=== PATIENT | female | born 1980 | race Caucasian/White ===

== ENCOUNTER → 2022-05-01 | Outpatient (CLI) | payer OTHER, SELFPAY ==
[2022-05-01 14:30] LABS: Absolute Neutrophil Count 8.9 X10^3/uL (2.0-7.7); Basophil# 0.02 X10^3/uL; Basophil% 0.2 % (0-1); Eosinophil# 0.06 X10^3/uL; Eosinophils% 0.5 % (0-5); Hematocrit 37.5 % (37-47); Hemoglobin 12.6 g/dL (12.0-15.0); Lymphocyte % 15.7 % (19-41); Mean Corp Hgb Conc 33.6 g/dL (32-36); Mean Corpuscular Hgb 28.4 pg (27.0-32.0); Mean Corpuscular Volume 84.7 fL (81-99); Mean Platelet Vol. 10.6 fl (6.2-12.0); Monocyte# 0.59 X10^3/uL; Monocyte% 5.2 % (0-10); NRBC Flagged by Analyzer 0 % (0-5); Neutrophil # 8.94 X10^3/uL (2.7-7.7); Neutrophil % 78.1 % (47-70); Platelet Count 290 K/mm3 (150-450); RBC Distribution Width CV 13.3 % (11.6-14.6); RBC Distribution Width SD 41.4 fl (35.1-43.9); Red Blood Count 4.43 M/mm3 (4.2-5.4); White Blood Count 11.5 K/mm3 (4.4-11.0)
[2022-05-01 14:57] LABS: ALB/GLOB Ratio 0.9 RATIO (0.9-2.4); AST(SGOT) 10 U/L (15-37); Alanine Aminotransfer ALT/SGPT 18 U/L (13-56); Albumin, Serum 3.3 g/dL (3.2-5.0); Alkaline Phosphatase 63 U/L (45-117); Anion Gap 7 (5-15); BUN 12 mg/dL (7-18); BUN/Creat Ratio 14.6 RATIO (10-20); Calcium,Total 8.9 mg/dL (8.5-10.1); Chloride 107 mmol/L (98-107); Creatinine, Serum 0.82 mg/dL (0.55-1.02); EST Glomerular Filtration Rate 81 mL/min (>60); Est Glom Filt Rate - Afr Amer 98 mL/min (>60); Globulin 3.8 g/dL (2.2-4.2); Glucose 162 mg/dL (74-106); Glucose Challenge Gest 1H 50g 162 mg/dL (70-140); Potassium 3.7 mmol/L (3.5-5.1); Protein, Total 7.1 g/dL (6.4-8.2); Sodium Level 136 mmol/L (136-145)
[2022-05-01 16:05] LABS: HIV - WCH Non-Reactive (Nonreactive); Hepatitis B Surface Antigen Non-Reactive (Nonreactive); Hepatitis C Antibody Non-Reactive (Nonreactive); Rubella IgG Reactive (Nonreactive); Syphilis Antibodies Non-reactive
[2022-05-04 00:06] LABS: Chlamydia By Nucleic Acid AMP Negative (Negative)
[2022-05-04 12:37] LABS: Gonococcus By Nucleic Acid AMP Negative (Negative)
[2022-05-10 13:34] LABS: HPV APTIMA, High Risk Negative (Negative)
== END | disposition home or self-care (01) ==
LOC: PAVLAB 14:11
PROVIDERS: Referring Provider Obstetrics & Gynecology; Visit Provider Obstetrics & Gynecology
DX: O09.90 Supervision of high risk pregnancy, unspecified, unspecified trimester (principal)
CPT/HCPCS: 36415; 80053; 82950; 85025; 86703; 86762; 86780; 86803; 86850; 86900; 86901; 87086; 87340; 87491; 87591; 87624; 88175; G0145

== ENCOUNTER → 2022-05-07 | Outpatient (CLI) | payer OTHER, SELFPAY ==
[2022-05-07 10:47] LABS: Glucose GTT-Gestation. Fasting 98 mg/dL (<105)
[2022-05-07 12:47] LABS: Glucose GTT-Gestational 1 Hr 123 mg/dL (<190)
[2022-05-07 13:41] LABS: Glucose GTT-Gestational 2 Hr 111 mg/dL (<165)
[2022-05-07 13:50] LABS: Glucose GTT-Gestational 3 Hr 72 L (<145)
== END | disposition home or self-care (01) ==
LOC: LAB 09:59
PROVIDERS: PCP Physician Assistant; Referring Provider Nurse Practitioner Women's Health; Visit Provider Nurse Practitioner Women's Health
DX: Z13.1 Encounter for screening for diabetes mellitus (principal)
CPT/HCPCS: 36415; 82951; 82952

== ENCOUNTER → 2022-07-23 | Outpatient (CLI) | payer OTHER, SELFPAY ==
[2022-07-23 19:25] LABS: Protein:Creat Ratio 85 mg/g CRE (0-200)
== END | disposition home or self-care (01) ==
PROVIDERS: Advanced Practice Midwife; PCP Physician Assistant; Visit Provider Obstetrics & Gynecology
DX: O16.9 Unspecified maternal hypertension, unspecified trimester (principal)
CPT/HCPCS: 82570; 84156

== ENCOUNTER → 2022-09-10 | Outpatient (CLI) | payer OTHER, SELFPAY ==
[2022-09-10 12:24] LABS: Absolute Lymphocyte Count 1.57 X10^3/uL (0.83-4.51); Absolute Neutrophil Count 7.6 X10^3/uL (2.0-7.7); Basophil# 0.01 X10^3/uL; Basophil% 0.1 % (0-1); Eosinophil# 0.05 X10^3/uL; Eosinophils% 0.5 % (0-5); Hemoglobin 11.6 g/dL (12.0-15.0); Lymphocyte # 1.57 X10^3/ul (0.83-4.51); Mean Corp Hgb Conc 32.2 g/dL (32-36); Mean Corpuscular Hgb 28.7 pg (27.0-32.0); Mean Corpuscular Volume 89.1 fL (81-99); Mean Platelet Vol. 10.6 fl (6.2-12.0); Monocyte# 0.52 X10^3/uL; Monocyte% 5.3 % (0-10); NRBC Flagged by Analyzer 0 % (0-5); Neutrophil % 77.4 % (47-70); Platelet Count 268 K/mm3 (150-450); RBC Distribution Width CV 13.2 % (11.6-14.6); RBC Distribution Width SD 42.9 fl (35.1-43.9); Red Blood Count 4.04 M/mm3 (4.2-5.4); White Blood Count 9.8 K/mm3 (4.4-11.0)
[2022-09-10 12:54] LABS: Glucose Challenge Gest 1H 50g 124 mg/dL (70-140)
[2022-09-10 13:16] LABS: HIV - WCH Non-Reactive (Nonreactive); Syphilis Antibodies Non-reactive
== END | disposition home or self-care (01) ==
LOC: LAB 11:46
PROVIDERS: PCP Physician Assistant; Referring Provider Obstetrics & Gynecology; Visit Provider Obstetrics & Gynecology
DX: O16.9 Unspecified maternal hypertension, unspecified trimester (principal); Z3A.00 Weeks of gestation of pregnancy not specified
CPT/HCPCS: 36415; 82950; 85025; 86703; 86780

== ENCOUNTER → 2022-10-15 | Outpatient (CLI) | payer OTHER, SELFPAY ==
--- NOTE | 2022-10-15 12:11 | US_ITS ---
INDICATION: Weekly GRACE- Hypertension -- 33 Weeks EXAMINATION: Ultrasound US Biophysical Profile W/O Nonst TECHNIQUE: Transabdominal pelvic ultrasound was performed. COMPARISON: No relevant prior comparison study available LMP: Unknown. Beta-hCG: Unknown. Provided EGA: None. FINDINGS: HEART MOTION is 143 bpm. AMNIOTIC FLUID INDEX (GRACE): 11.36 BIOPHYSICAL PROFILE (BPP): 10/01 -- Breathin/2. -- Movement: 2/2. -- Tone: 2/2. --GRACE: 2/2. PRESENTATION: Posterior. PLACENTA: Anterior. There is no placenta previa or abruption. US/Biophysical Prof W/O Non Stres IMPRESSION: Single live intrauterine with a biophysical profile of 10/01. Electronically Signed: Rimma Robles MD at 8:15 EDT ,
== END | disposition home or self-care (01) ==
LOC: OPUS 12:10
PROVIDERS: PCP Physician Assistant; Referring Provider Nurse Practitioner Women's Health; Visit Provider Nurse Practitioner Women's Health
DX: O16.3 Unspecified maternal hypertension, third trimester (principal); Z3A.33 33 weeks gestation of pregnancy
CPT/HCPCS: 76819

== ENCOUNTER → 2022-10-29 | Outpatient (CLI) | payer OTHER, SELFPAY ==
--- NOTE | 2022-10-29 12:30 | US_ITS ---
INDICATION: Weekly GRACE- Hypertension -- 35 Weeks EXAMINATION: Ultrasound US Biophysical Profile W/O Nonst TECHNIQUE: Transabdominal pelvic ultrasound was performed. COMPARISON: 10/15/2022 LMP: 02/25/2022 Beta-hCG: Unknown. Provided EGA: 35 weeks 1 day FINDINGS: INTRAUTERINE GESTATION(s): Single. HEART MOTION is 147 bpm. AMNIOTIC FLUID INDEX (GRACE): 18.1 cm BIOPHYSICAL PROFILE (BPP): 10/01 -- Breathin/2. -- Movement: 2/2. -- Tone: 2/2. --GRACE: 2/2. PRESENTATION: Cephalic PLACENTA: Posterior. There is no placenta previa or abruption. CERVIX: The cervix is not visualized. US/Biophysical Prof W/O Non Stres IMPRESSION: Single live intrauterine . Biophysical profile score 10/01. Electronically Signed: Emmanuel Randle MD at 0:56 EDT ,
== END | disposition home or self-care (01) ==
LOC: OPUS 12:28
PROVIDERS: PCP Physician Assistant; Referring Provider Nurse Practitioner Women's Health; Visit Provider Nurse Practitioner Women's Health
DX: O16.9 Unspecified maternal hypertension, unspecified trimester (principal); Z3A.35 35 weeks gestation of pregnancy
CPT/HCPCS: 76819

== ENCOUNTER → 2022-11-05 | Outpatient (CLI) | payer OTHER, SELFPAY ==
--- NOTE | 2022-11-05 12:25 | US_ITS ---
STUDY: OBSTETRICAL ULTRASOUND - BIOPHYSICAL PROFILE REASON FOR EXAM: Female, 42 years old maternal hypertension LMP: 02/25/2022 PRIOR ULTRASOUND: 10/29/2022 TECHNIQUE: Transabdominal TECHNICAL QUALITY: Adequate. FINDINGS: There is a single intrauterine fetus. The fetus is in a cephalic presentation. There is demonstrated cardiac activity with a heart rate of 142 bpm. There is a borderline normal amniotic fluid volume. The largest amniotic fluid pocket measures 7.4 cm. The amniotic fluid index (GRACE) is 25.2 cm. Both have increased since the previous study. The placenta is posterior and fundal, not low lying There are Grade 0 placental changes. Age by LMP: 36 weeks, 1 days. TAISHA by LMP: 12/02/2022. BIOPHYSICAL PROFILE: Breathing Movements (FBM): 2 Gross Body Movements (GBM): 2 Tone (FT): 2 Amniotic Fluid Volume (AFV): 2 TOTAL SCORE: US/Biophysical Prof W/O Non Stres IMPRESSION: Normal biophysical profile of 10/01. Electronically Signed: John Weinberg MD at 17:08 EDT ,
== END | disposition home or self-care (01) ==
LOC: OPUS 12:24
PROVIDERS: PCP Physician Assistant; Referring Provider Nurse Practitioner Women's Health; Visit Provider Nurse Practitioner Women's Health
DX: O16.3 Unspecified maternal hypertension, third trimester (principal); Z3A.34 34 weeks gestation of pregnancy
CPT/HCPCS: 76819

== ENCOUNTER → 2022-11-07 | Outpatient (CLI) | payer OTHER, SELFPAY | END | disposition home or self-care (01) | PROVIDERS: PCP Physician Assistant; Referring Provider Obstetrics & Gynecology; Visit Provider Obstetrics & Gynecology | DX: O09.90 Supervision of high risk pregnancy, unspecified, unspecified trimester (principal); Z3A.00 Weeks of gestation of pregnancy not specified | CPT/HCPCS: 87081 ==

== ENCOUNTER 2022-11-10 17:50 | Outpatient (CLI) | payer OTHER, SELFPAY ==
[2022-11-10] VITALS (7 sets, daily range): BP systolic 140–152; BP diastolic 82–90; PULSE 69–89; TEMP 37.1; O2SAT 97; BMI 39.4
--- NOTE | 2022-11-10 18:44 | OB.TRI.PN ---
Progress Notes Date of Service: 11/10/22 Progress Note: Patient presents for triage evaluation secondary to decreased movement FHT: 150 Moderate variability reactive no decelerations category I tracing [place]: irregular Contractions Assessment and plan: decreased movement Reactive NST, reassuring maternal and status patient discharged to home to follow-up as scheduled. See problem list details for additional plan information. Charges/Coding Procedures Urinary/Genital 52xxx-59xxx: 54226-72 non-stress test Interp
[2022-11-10 19:45] LABS: Hematocrit 36.1 % (37-47); Hemoglobin 11.6 g/dL (12.0-15.0); Mean Corp Hgb Conc 32.1 g/dL (32-36); Mean Corpuscular Hgb 28.5 pg (27.0-32.0); Mean Corpuscular Volume 88.7 fL (81-99); Mean Platelet Vol. 10.9 fl (6.2-12.0); Platelet Count 291 K/mm3 (150-450); RBC Distribution Width CV 13.4 % (11.6-14.6); RBC Distribution Width SD 43.5 fl (35.1-43.9); Red Blood Count 4.07 M/mm3 (4.2-5.4); White Blood Count 10.8 K/mm3 (4.4-11.0)
[2022-11-10 19:55] LABS: Protein, Urine (Random) 21.6 mg/dL (<11.9); Protein:Creat Ratio 160 mg/g CRE (0-200)
[2022-11-10 20:05] LABS: AST(SGOT) 19 U/L (15-37); Alanine Aminotransfer ALT/SGPT 37 U/L (13-56); EST Glomerular Filtration Rate 84 mL/min (>60); Est Glom Filt Rate - Afr Amer 101 mL/min (>60); Estimated Creatinine Clearance 85.76 ml/min; Uric Acid 2.5 mg/dL (2.6-6.0)
== END 2022-11-10 20:30 | disposition home or self-care (01) ==
LOC: WPOUT 18:00 → WP 18:00
PROVIDERS: PCP Physician Assistant; Visit Provider Obstetrics & Gynecology
DX: O36.8190 Decreased fetal movements, unspecified trimester, not applicable or unspecified (principal); Z3A.00 Weeks of gestation of pregnancy not specified
CPT/HCPCS: 36415; 59025; 59050; 82565; 82570; 84156; 84450; 84460; 84550; 85027

== ENCOUNTER 2022-11-11 14:19 | Outpatient (CLI) | payer OTHER, SELFPAY ==
--- NOTE | 2022-11-11 14:21 | US_ITS ---
INDICATION: Weekly GRACE- Hypertension -- 37 Weeks EXAMINATION: Ultrasound US Biophysical Profile W/O Nonst TECHNIQUE: Transabdominal pelvic ultrasound was performed. COMPARISON: 11/05/2022 LMP: 02/25/2022 Beta-hCG: Unknown. Provided EGA: 37 weeks 0 days FINDINGS: INTRAUTERINE GESTATION(s): Single. HEART MOTION is 141 bpm. AMNIOTIC FLUID INDEX (GRACE): 22.6 cm BIOPHYSICAL PROFILE (BPP): 6/8 -- Breathin/2. -- Movement: 2/2. -- Tone: 2/2. --GRACE: 2/2. PRESENTATION: Cephalic PLACENTA: Posterior. There is no placenta previa or abruption. CERVIX: The cervix is not visualized. US/Biophysical Prof W/O Non Stres IMPRESSION: Single live intrauterine . Biophysical profile score 6/8. Electronically Signed: Emmanuel Randle MD at 16:51 EDT ,
[2022-11-11 15:34] VITALS: BP 142/93; PULSE 85
[2022-11-11 16:13] VITALS: BP 138/86; PULSE 83
[2022-11-11 16:27] LABS: Protein:Creat Ratio 253 mg/g CRE (0-200)
[2022-11-11 16:28] VITALS: BP 138/81; PULSE 84
--- NOTE | 2022-11-11 16:32 | OB.TRI.PN ---
Progress Notes Date of Service: 11/11/22 Progress Note: Patient presents for triage evaluation secondary to 6/8 bpp borderline bp FHT: 150 Moderate variability reactive no decelerations category I tracing [place]: irregular Contractions Assessment and plan: 6/8 bpp borderline bbp nl urine protein Reactive NST, reassuring maternal and status patient discharged to home to follow-up as scheduled. See problem list details for additional plan information. Laboratory Studies: Laboratory Tests 11/11/22 Range/Units 16:05 U Random Total Protein 57.0 H (<11.9) mg/dL Urine Creatinine 225.00 (NO RANGE EST.) mg/dL Protein/Creatinin Ratio 253 H (0-200) mg/g CRE Charges/Coding Procedures Urinary/Genital 52xxx-59xxx: 53240-34 non-stress test Interp
[2022-11-11 16:43] VITALS: BP 135/70; PULSE 88
[2022-11-11 17:30] VITALS: BMI 39.2
== END 2022-11-11 17:45 | disposition home or self-care (01) ==
LOC: OPUS 15:23 → WP 15:24
PROVIDERS: Obstetrics & Gynecology; PCP Physician Assistant; Referring Provider Nurse Practitioner Women's Health; Visit Provider Nurse Practitioner Women's Health
DX: O16.3 Unspecified maternal hypertension, third trimester (principal); Z3A.37 37 weeks gestation of pregnancy
CPT/HCPCS: 59050; 76819; 82570; 84156

== ENCOUNTER → 2022-11-14 | Outpatient (CLI) | payer OTHER, SELFPAY ==
--- NOTE | 2022-11-14 13:12 | US_ITS ---
EXAM: US BIOPHYSICAL PROFILE WITHOUT NON-STRESS TESTING CLINICAL INDICATION: well being TECHNIQUE: Real-time ultrasound of the maternal pelvis for biophysical profile evaluation with image documentation. COMPARISON: No relevant prior studies available. FINDINGS: BREATHING MOVEMENTS: Present. Score 2/2. GROSS BODY MOVEMENTS: Present. Score 2/2. TONE: Present. Score 2/2. QUALITATIVE AMNIOTIC FLUID VOLUME: GRACE 18.1 cm. HEART RATE: cardiac rate 143 bpm. PRESENTATION: Single fetus in cephalic presentation. PLACENTA: Posterior placenta with grade 1 maturity change. CERVIX: Cervix is not imaged. US/Biophysical Prof W/O Non Stres IMPRESSION: No acute findings. Normal biophysical profile with score of 8/8. Electronically Signed: Herbert Buenrostro MD at 16:54 EDT ,
[2022-11-14 13:28] LABS: Protein, Urine (Random) 27.8 mg/dL (<11.9); Protein:Creat Ratio 232 mg/g CRE (0-200)
== END | disposition home or self-care (01) ==
LOC: US 13:11
PROVIDERS: Obstetrics & Gynecology; PCP Physician Assistant; Referring Provider Obstetrics & Gynecology; Visit Provider Obstetrics & Gynecology
DX: O16.9 Unspecified maternal hypertension, unspecified trimester (principal); Z3A.00 Weeks of gestation of pregnancy not specified
CPT/HCPCS: 76819; 82570; 84156

== ENCOUNTER 2022-11-17 14:10 | Outpatient (CLI) | payer OTHER, SELFPAY ==
[2022-11-17 14:45] VITALS: BMI 39.5
[2022-11-17 14:54] VITALS: BP 144/93; PULSE 90
[2022-11-17 15:04] VITALS: BP 152/77; PULSE 72
[2022-11-17 15:14] VITALS: BP 134/79; PULSE 70
[2022-11-17 15:24] VITALS: BP 136/79; PULSE 71
[2022-11-17 15:24] LABS: Protein, Urine (Random) 16.9 mg/dL (<11.9); Protein:Creat Ratio 218 mg/g CRE (0-200)
[2022-11-17 15:25] LABS: Hematocrit 36.6 % (37-47); Hemoglobin 12.2 g/dL (12.0-15.0); Mean Corp Hgb Conc 33.3 g/dL (32-36); Mean Corpuscular Hgb 29.1 pg (27.0-32.0); Mean Corpuscular Volume 87.4 fL (81-99); Mean Platelet Vol. 11.3 fl (6.2-12.0); Platelet Count 286 K/mm3 (150-450); RBC Distribution Width CV 13.6 % (11.6-14.6); RBC Distribution Width SD 42.8 fl (35.1-43.9); Red Blood Count 4.19 M/mm3 (4.2-5.4); White Blood Count 11.4 K/mm3 (4.4-11.0)
[2022-11-17 15:31] LABS: AST(SGOT) 26 U/L (15-37); Alanine Aminotransfer ALT/SGPT 44 U/L (13-56); Creatinine, Serum 0.62 mg/dL (0.55-1.02); EST Glomerular Filtration Rate 111 mL/min (>60); Est Glom Filt Rate - Afr Amer 135 mL/min (>60); Estimated Creatinine Clearance 110.66 ml/min; Uric Acid 2.5 mg/dL (2.6-6.0)
[2022-11-17 15:34] VITALS: BP 131/79; PULSE 75
[2022-11-17 15:46] VITALS: BP 143/76; PULSE 72
--- NOTE | 2022-11-18 08:27 | OB.TRI.HP_ITS ---
HPI - General General Date of Admission: 11/17/22 Date of Service: 11/17/22 Chief Complaint: elevated bp at home HPI Narrative PATSY MENDEZ, is a 42 F who presents at 37.6 with elevated BP at home however does not feel cuff is reliable. presents without headache, RUQ or visual changes. did have concerns with decreased movement today. no contractions, lof, or vb. Maternal Data Information TAISHA Calculator Estimated Delivery Date Method Current WG Current Estimate 12/02/22 LMP (Certain) 38w 0d Other Estimates 12/02/22 Ultrasound #1 38w 0d PFSH PFS Medical History Abnormal glucose affecting Hypertension Home Medications blood pressure monitor (Blood Pressure Kit) #1 ea 05/01/22 [Rx Last Taken Unknown] aspirin 81 mg tablet,delayed release (Adult Low Dose Aspirin) 81 mg PO DAILY 05/28/22 [History Last Taken Unknown] labetalol 100 mg tablet 100 mg PO BID 90 days #180 tabs 10/08/22 [Rx Last Taken 11/10/22] vits no.130-ferrous fum 27 mg iron-folic acid 800 mcg tablet ( Vitamin) tab PO DAILY 11/10/22 [History Last Taken Unknown] Allergy/AdvReac Type Severity Reaction Status Date / Time No Known Allergies Allergy Verified 11/14/22 11:23 Family History Grandmother Breast cancer, Onset Age: 78 Grandfather Hypertension Surgical History Hx of section Hx of hernia repair Hx of tonsillectomy Social History household members: spouse and children housing: house number of children: 4 current occupational status: employed 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[employer] current occupational exposures/hazards: No pets and animals: Yes pets and animals: dog(s) and guinea pig(s) history of recent travel: No sexually active: Yes Smoking Status: Never smoker alcohol intake: current alcohol intake frequency: holidays/special occasions only diet: low salt well-balanced diet: about half the time caffeine: No seatbelt use: always do you feel safe at home: Yes additional social history: [employer] History 6 Elective abortions Hx Para 3 Spontaneous abortions 2 Hx # Term Pregnancies 2 Ectopic pregnancies Hx # Pregnancies 1 Multiple births 1 # of living children 4 Past Pregnancies Del. Date Name GA/Weeks Outcome Route Bth Weight Infant Gen Labor [facility] FOB Unknown spontaneous Unknown spontaneous 08/06/11 Selvin Ashford 34 live - Fema le spinal [facility] 09/18/13 Samuel 39 live - full term Male epidur al [facility] 07/27/20 Janeth 39 live - full term Female none [facility] Visit Details Expected Delivery Route/Plan patient counseled regarding risks/benefits of trial of labor versus repeat . ACOG/uptodate education given to patient. % likelihood of success per calculator TOLAC consent form signed: [] Labor Preferences- CB/BF classes: no labor support person: Danielito labor intervention preferences: minimal intervention pain management options preferred: none cut cord/dad catch: yes : yes PP control planned: discussed discussed possible routes of delivery and associated risks: [] special requests: [] Plans Covid status: discussed Flu vaccine: discussed Tdap vaccine: [] Rhogam: NA LARC form signed: yes Problem list reviewed and updated with the most current plan of care details and appropriate orders placed. Relevant counseling for the gestational age provided. Continue routine care and follow up unless otherwise noted in visit notes/problem list details OB Flowsheet Initial Weight: 234 lb Date -?-?-?-?-?-?-?-?-?-?-?-?- EGA Weight BP Urine Prot -?-?-?-?-?-?-?-?-?-?-?-?- Glucose FHR FuHt Pres Dilation -?-?-?-?-?-?-?-?-?-?-?-?- Effaced St Visit Note 05/01/22 -?-?-?-?-?-?-?-?-?-?-?-?- 9w 2d 234 lb (+0 oz) 125/77 -?-?-?-?-?-?-?-?-?-?-?-?- 185 -?-?-?-?-?-?-?-?-?-?-?-?- JV- single live iUP measuring 9 weeks 2 days, consistent with LMP. declines NIPT. 05/28/22 -?-?-?-?-?-?-?-?-?-?-?-?- 13w 1d 238 lb 8 oz (+4 lb 8 oz) 137/81 -?-?-?-?-?-?-?-?-?-?-?-?- 160 -?-?-?-?-?-?-?-?-?-?-?-?- Sm- no vb lof cr amping extensive counseling regarding genetic options 06/25/22 -?-?-?-?-?-?-?-?-?-?-?-?- 17w 1d 246 lb 2 oz (+12 lb 2 oz) 123/73 Negative -?-?-?-?-?-?-?-?-?-?-?-?- Negative 150 -?-?-?-?-?-?-?-?-?-?-?-?- JV- + fm on beds wilmer scan. they decided against NIPT. anatomy scan scheduled for next 07/11. 07/23/22 -?-?-?-?-?-?-?-?-?-?-?-?- 21w 1d 248 lb 2 oz (+14 lb 2 oz) 133/81 Trace -?-?-?-?-?-?-?-?-?-?-?-?- Negative 155 21 -?-?-?-?-?-?-?-?-?-?-?-?- KW- +fm. no cram ping. declines echo. discussed growth us and nsts at 32 weeks. pt tearful regarding additional testing. 08/22/22 -?-?-?-?-?-?-?-?-?-?-?-?- 25w 3d 246 lb 6 oz (+12 lb 6 oz) 124/64 Trace -?-?-?-?-?-?-?-?-?-?-?-?- Negative 140 25 -?-?-?-?-?-?-?-?-?-?-?-?- SM- had ec ho 615 and very small vsd present, will obtain report. no vb cramping 09/10/22 -?-?-?-?-?-?-?-?-?-?-?-?- 28w 1d 245 lb (+11 lb) 124/82 Negative -?-?-?-?-?-?-?-?-?-?-?-?- Negative 151 28 -?-?-?-?-?-?-?-?-?-?-?-?- MH-No Vb, LOF. G ood FM. Plans [facility] delivery. 28 wk labs today, larc. Declines tdap today. Enc to schedule twice weekly testing at 32 wk and growth US Q4w at 32 wk. 09/25/22 -?-?-?-?-?-?-?-?-?-?-?-?- 30w 2d 244 lb 2 oz (+10 lb 2 oz) 119/67 Negative -?-?-?-?-?-?-?-?-?-?-?-?- Negative 145 32 -?-?-?-?-?-?-?-?-?-?-?-?- JV- discussed wi th peds about possible transport after delivery. Per [facility] the chances of term delivery transport with mild vsd and mild renal dilation is very low. we also discussed 38 week delivery necessity unless [facility] gives permission to deliver later. She desires . 10/11/22 -?-?-?-?-?-?-?-?-?-?-?-?- 32w 4d 242 lb 2 oz (+8 lb 2 oz) 124/82 Negative -?-?-?-?-?-?-?-?-?-?-?-?- Negative 150 -?-?-?-?-?-?-?-?-?-?-?-?- JV- nst reactive today. no other complaints. 10/18/22 -?-?-?-?-?-?-?-?-?-?-?-?- 33w 4d 244 lb 2 oz (+10 lb 2 oz) 116/73 Negative -?-?-?-?-?-?-?--?-?-?-?-?- Negative 140 -?-?-?-?-?-?-?-?-?-?-?-?- SM- no vb lof ns t today 11/01/22 -?-?-?-?-?-?-?-?-?-?-?-?- 35w 4d 248 lb 6 oz (+14 lb 6 oz) 126/78 Negative -?-?-?-?-?-?-?-?-?-?-?-?- Negative 140 -?-?-?-?-?-?-?-?-?-?-?-?- LC- no vb/lof/ct x. good fm. reactive nst. gbs next visit. 11/07/22 -?-?-?-?-?-?-?-?-?-?-?-?- 36w 3d 245 lb 8 oz (+11 lb 8 oz) 127/84 Negative -?-?-?-?-?-?-?-?-?-?-?-?- Negative 140 -?-?-?-?-?-?-?-?-?-?-?-?- SM- reviewed US finidings, gbs collected, continue meds and reviewed precautions, no vb lof good fm no reuglar ctx 11/14/22 -?-?-?-?-?-?-?-?-?-?-?-?- 37w 3d 247 lb 8 oz (+13 lb 8 oz) 125/82 Trace -?-?-?-?-?-?-?-?-?-?-?-?- Negative 150 38 -?-?-?-?-?-?-?-?-?-?-?-?- JV- no lof, vagi nal bleeding, or dec fm. NST was not completely reactive but bpp is 8/8. pro:cr ratio was 212 down from 250. plan IOL on Friday am. NST FHR Rate Baby A Baseline: 125 Variability:: Moderate Accelerations:: 15 x 15 Decelerations:: None NST Reactive:: Yes FHR Category:: Category I Uterine Activity:: irregular Assessment & Plan (1) Hypertension affecting : QUALIFIERS: Trimester: third trimester Qualified Code(s): O16.3 - Unspecified maternal hypertension, third trimester COMMENT: P/C - nl on 07/23). chronic-Labetalol 100mg BID and h/o pre-e. start baby asa. plan growth US q 4weeks, twice weekly testing 32 weeks on(schedule once a week NST and BPP). delivery by PLAN: negative PEC labs, stable and consistent BP 130-140s/80s. no severe range bp has IOL scheduled for friday. (2) Decreased movement: COMMENT: reassuring NST with movement in WP. PLAN: Plan Patient presents for triage evaluation secondary for concerns for elevated bp at home. baseline bp found on WP monitors and reassurance provided. FHT: Moderate variability reactive no decelerations category I tracing [place]: irregular Contractions Assessment and plan: Reactive NST, reassuring maternal and status patient discharged to home to follow-up prn and for iol on friday. See problem list details for additional plan information. Charges/Coding Procedures Urinary/Genital 52xxx-59xxx: 52514-36 non-stress test Interp
== END 2022-11-17 15:53 | disposition home or self-care (01) ==
LOC: WPOUT 14:34 → WP 14:36
PROVIDERS: PCP Physician Assistant; Referring Provider Registered Nurse; Visit Provider Registered Nurse
DX: O36.8130 Decreased fetal movements, third trimester, not applicable or unspecified (principal); O16.3 Unspecified maternal hypertension, third trimester; Z3A.37 37 weeks gestation of pregnancy
CPT/HCPCS: 59025; 59050; 82565; 82570; 84156; 84450; 84460; 84550; 85027; 99221; G0378

== ENCOUNTER 2022-11-20 07:54 | Inpatient (IN) | payer OTHER, SELFPAY ==
[2022-11-20] VITALS (20 sets, daily range): BP systolic 136–155; BP diastolic 64–93; PULSE 68–97; TEMP 36.9–37.8; O2SAT 98–99; BMI 40.2
[2022-11-20] MEDS: Lactated Ringers 1,000 ML 50 ML IV (09:40)
[2022-11-20 10:06] LABS: Absolute Lymphocyte Count 1.84 X10^3/uL (0.83-4.51); Absolute Neutrophil Count 7.5 X10^3/uL (2.0-7.7); Basophil# 0.02 X10^3/uL; Basophil% 0.2 % (0-1); Eosinophil# 0.04 X10^3/uL; Eosinophils% 0.4 % (0-5); Hemoglobin 11.6 g/dL (12.0-15.0); Lymphocyte # 1.84 X10^3/ul (0.83-4.51); Lymphocyte % 17.9 % (19-41); Mean Corp Hgb Conc 32.2 g/dL (32-36); Mean Corpuscular Hgb 28.4 pg (27.0-32.0); Mean Platelet Vol. 11.4 fl (6.2-12.0); Monocyte# 0.79 X10^3/uL; Monocyte% 7.7 % (0-10); NRBC Flagged by Analyzer 0 % (0-5); Neutrophil % 73.1 % (47-70); Platelet Count 280 K/mm3 (150-450); RBC Distribution Width CV 13.7 % (11.6-14.6); RBC Distribution Width SD 43.9 fl (35.1-43.9); Red Blood Count 4.09 M/mm3 (4.2-5.4); White Blood Count 10.3 K/mm3 (4.4-11.0)
[2022-11-20] MEDS: Oxytocin 15 Units/NS 250ml 15 UNITS/250 ML IV.SOLN 2 UNITS IV (10:07)
[2022-11-20] MEDS: Labetalol 100 MG Tablet PO ×2 (10:16→20:07)
[2022-11-20 10:45] LABS: Syphilis Antibodies Non-reactive
--- NOTE | 2022-11-20 14:06 | HP.PCM.OB_ITS ---
HPI - General General Date of Admission: 11/20/22 HPI Narrative PATSY MENDEZ, is a 42 g/o @ 38 weeks 2 days who presents to L&D for IOL due to chronic htn on medication. She has a history of prior section due to twin gestation and requests TOLAC. her baby has been found to have a minor VSD an mild pyelectasis. Her amniotic fluid level was in the polyhydramnios range Maternal Data Information TAISHA Calculator Estimated Delivery Date Method Current WG Current Estimate 12/02/22 LMP (Certain) 38w 2d Other Estimates 12/02/22 Ultrasound #1 38w 2d [facility] Medical History (Updated 11/20/22 @ 10:58 by Olinda Hernandez) Abnormal glucose affecting Hypertension Polyhydramnios affecting Varicose veins of both lower extremities Home Medications blood pressure monitor (Blood Pressure Kit) #1 ea 05/01/22 [Rx Last Taken Unknown] aspirin 81 mg tablet,delayed release (Adult Low Dose Aspirin) 81 mg PO DAILY 05/28/22 [History Last Taken 11/19/22 21:02 81 mg] labetalol 100 mg tablet 100 mg PO BID hypertension 90 days #180 tabs 10/08/22 [Rx Last Taken 11/19/22 21:00 100 mg] vits no.130-ferrous fum 27 mg iron-folic acid 800 mcg tablet ( Vitamin) 1 tab PO DAILY 11/10/22 [History Last Taken 11/19/22 08:03 1 TAB] Allergy/AdvReac Type Severity Reaction Status Date / Time No Known Allergies Allergy Verified 11/20/22 10:01 Family History Grandmother Breast cancer, Onset Age: 78 Grandfather Hypertension Surgical History Hx of section Hx of hernia repair Hx of tonsillectomy Social History household members: spouse and children housing: house number of children: 4 current occupational status: employed 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[employer] current occupational exposures/hazards: No pets and animals: Yes pets and animals: dog(s) and guinea pig(s) history of recent travel: No sexually active: Yes Smoking Status: Never smoker alcohol intake: current alcohol intake frequency: holidays/special occasions only diet: low salt well-balanced diet: about half the time caffeine: No seatbelt use: always do you feel safe at home: Yes additional social history: Criss and jamarcus History 6 Elective abortions Hx Para 4 Spontaneous abortions 2 Hx # Term Pregnancies 2 Ectopic pregnancies Hx # Pregnancies 1 Multiple births 1 # of living children 4 Past Pregnancies Del. Date Name GA/Weeks Outcome Route Bth Weight [facility] Unknown spontaneous Unknown spontaneous 08/06/11 Selvin Ashford 34 live - Fema le spinal [facility] 09/18/13 Samuel 39 live - full term Male epidur [facility] 07/27/20 Janeth 39 live - full term Female none [facility] Visit Details Expected Delivery Route/Plan patient counseled regarding risks/benefits of trial of labor versus repeat . ACOG/uptodate education given to patient. % likelihood of success per calculator TOLAC consent form signed: [] Labor Preferences- CB/BF classes: no labor support person: Danielito labor intervention preferences: minimal intervention pain management options preferred: none cut cord/dad catch: yes : yes PP control planned: discussed discussed possible routes of delivery and associated risks: [] special requests: [] Plans Covid status: discussed Flu vaccine: discussed Tdap vaccine: [] Rhogam: NA LARC form signed: yes Problem list reviewed and updated with the most current plan of care details and appropriate orders placed. Relevant counseling for the gestational age provided. Continue routine care and follow up unless otherwise noted in visit notes/problem list details OB Flowsheet Initial Weight: 234 lb Date -?-?-?-?-?-?-?-?-?-?-?-?- EGA Weight BP Urine Prot -?-?-?-?-?-?-?-?-?-?-?-?- Glucose FHR FuHt Pres Dilation -?-?-?-?-?-?-?-?-?-?-?-?- Effaced St Visit Note 05/01/22 -?-?-?-?-?-?-?-?-?-?-?-?- 9w 2d 234 lb (+0 oz) 125/77 -?-?-?-?-?-?-?-?-?-?-?-?- 185 -?-?-?-?-?-?-?-?-?-?-?-?- JV- single live iUP measuring 9 weeks 2 days, consistent with LMP. declines NIPT. 05/28/22 -?-?-?-?-?-?-?-?-?-?-?-?- 13w 1d 238 lb 8 oz (+4 lb 8 oz) 137/81 -?-?-?-?-?-?-?-?-?-?-?-?- 160 -?-?-?-?-?-?-?-?-?-?-?-?- Sm- no vb lof cr amping extensive counseling regarding genetic options 06/25/22 -?-?-?-?-?-?-?-?-?-?-?-?- 17w 1d 246 lb 2 oz (+12 lb 2 oz) 123/73 Negative -?-?-?-?-?-?-?-?-?-?-?--?- Negative 150 -?-?-?-?-?-?-?-?-?-?-?-?- JV- + fm on beds wilmer scan. they decided against NIPT. anatomy scan scheduled for next 07/11. 07/23/22 -?-?-?-?-?-?-?-?-?-?-?-?- 21w 1d 248 lb 2 oz (+14 lb 2 oz) 133/81 Trace -?-?-?-?-?-?-?-?-?-?-?-?- Negative 155 21 -?-?-?-?--?-?-?-?-?-?-?-?- KW- +fm. no cram ping. declines echo. discussed growth us and nsts at 32 weeks. pt tearful regarding additional testing. 08/22/22 -?-?-?-?-?-?-?-?-?-?-?-?- 25w 3d 246 lb 6 oz (+12 lb 6 oz) 124/64 Trace -?-?-?-?-?-?-?-?-?-?-?-?- Negative 140 25 -?-?-?-?-?-?-?-?-?-?-?-?- SM- had ec ho 15 and very small vsd present, will obtain report. no vb cramping 09/10/22 -?-?-?-?-?-?-?-?-?-?-?-?- 28w 1d 245 lb (+11 lb) 124/82 Negative -?-?-?-?-?-?-?-?-?-?-?-?- Negative 151 28 -?-?-?-?-?-?-?-?-?-?-?-?- MH-No Vb, LOF. G ood FM. Plans [facility] delivery. 28 wk labs today, larc. Declines tdap today. Enc to schedule twice weekly testing at 32 wk and growth US Q4w at 32 wk. 09/25/22 -?-?-?-?-?-?-?-?-?-?-?-?- 30w 2d 244 lb 2 oz (+10 lb 2 oz) 119/67 Negative -?-?-?-?-?-?-?-?-?-?-?-?- Negative 145 32 -?-?-?-?-?-?-?-?-?-?-?-?- JV- discussed wi th peds about possible transport after delivery. Per [facility] the chances of term delivery transport with mild vsd and mild renal dilation is very low. we also discussed 38 week delivery necessity unless [facility] gives permission to deliver later. She desires . 10/11/22 -?-?-?-?-?-?-?-?-?-?-?-?- 32w 4d 242 lb 2 oz (+8 lb 2 oz) 124/82 Negative -?-?-?-?-?--?-?-?-?-?-?-?- Negative 150 -?-?-?-?-?-?-?-?-?-?-?-?- JV- nst reactive today. no other complaints. 10/18/22 -?-?-?-?-?-?-?-?-?-?-?-?- 33w 4d 244 lb 2 oz (+10 lb 2 oz) 116/73 Negative -?-?-?-?-?-?-?-?-?-?-?-?- Negative 140 -?-?-?-?-?-?-?-?-?-?-?-?- SM- no vb lof ns t today 11/01/22 -?-?-?-?-?-?-?-?-?-?-?-?- 35w 4d 248 lb 6 oz (+14 lb 6 oz) 126/78 Negative -?-?-?-?-?-?-?-?-?-?-?-?- Negative 140 -?-?-?-?-?-?-?-?-?-?-?-?- LC- no vb/lof/ct x. good fm. reactive nst. gbs next visit. 11/07/22 -?-?-?-?-?-?-?-?-?-?-?-?- 36w 3d 245 lb 8 oz (+11 lb 8 oz) 127/84 Negative -?-?-?-?-?-?-?-?-?-?-?-?- Negative 140 -?-?-?-?-?-?-?-?-?-?-?-?- SM- reviewed US finidings, gbs collected, continue meds and reviewed precautions, no vb lof good fm no reuglar ctx 11/14/22 -?-?-?-?-?-?-?-?-?-?-?-?- 37w 3d 247 lb 8 oz (+13 lb 8 oz) 125/82 Trace -?-?-?-?-?-?-?-?-?-?-?-?- Negative 150 38 -?-?-?-?-?-?-?-?-?-?-?-?- JV- no lof, vagi nal bleeding, or dec fm. NST was not completely reactive but bpp is 8. pro:cr ratio was 212 down from 250. plan IOL on Friday am. ROS Constitutional Constitutional: Denies change in weight, fatigue, fever(s), headache(s), poor appetite or weakness Eyes Eyes: Denies blurry vision, change in vision, seeing flashes or spots in vision ENT HEENT: Denies dizziness, headache(s), loss taste/smell or sore throat Cardiovascular Cardiovascular: Denies chest pain, dizziness, dyspnea, irregular heart rhythm, leg edema, palpitations, rapid heart rate or vomiting Respiratory/Chest Respiratory/Chest: Denies chest tightness, cough, dyspnea or breast pain Gastrointestinal Gastrointestinal: Denies abdominal pain, anorexia, constipation, cramping, diarrhea, hemorrhoids, vomiting or weight changes Genitourinary Genitourinary: Denies dysuria, flank pain, genital lesions, genital pain, urinary frequency or urinary urgency Musculoskeletal Musculoskeletal: Denies back pain, difficulty walking, joint pain, limited range of motion, muscle cramps or numbness Integumentary Integumentary: Denies lesions or unusual bruising Neurologic Neurologic: Denies abnormal movements, abnormal speech, dizziness, numbness, seizure-like activity or syncope Psychiatric Psychiatric: Denies anxiety, behavioral changes, change in appetite, change in libido, cognitive impairment, confusion, depression, difficulty concentrating, hallucinations or suicidal thoughts Endocrine Endocrinology: Denies excessive sweating, polydipsia or polyuria Hematologic/Lymphatic Hematologic/Lymphatic: Denies easy bleeding, easy bruising or lymphadenopathy Allergic/Immunologic Allergic/Immunologic: Denies itchy eyes, lip swelling, seasonal rhinorrhea, rhinitis, throat swelling, tongue swelling, eczemia, wheezing or asthma Vital Signs Vital Signs Vital Signs: 11/20/22 09:23 11/20/22 09:23 11/20/22 09:22 Temperature Temperature Source Pulse Rate 84 Blood Pressure 145/83 H BP Systolic 145 BP Diastolic 83 Pulse Ox 98 11/20/22 11:45 11/20/22 11:45 11/20/22 12:54 Temperature Temperature Source Pulse Rate 71 Blood Pressure 136/87 H 153/83 H BP Systolic 136 153 BP Diastolic 87 83 Pulse Ox 11/20/22 12:54 11/20/22 13:09 11/20/22 13:09 Temperature 98.6 F Temperature Source Temporal Pulse Rate 71 Blood Pressure BP Systolic BP Diastolic Pulse Ox 11/20/22 13:15 11/20/22 13:15 Temperature Temperature Source Pulse Rate 74 Blood Pressure 142/71 H BP Systolic 142 BP Diastolic 71 Pulse Ox Weight Weight: 249 lb 9.012 oz Body Mass Index (BMI) 40.2 Physical Exam Const alert, oriented x3, no apparent distress and healthy appearing General Appearance: cooperative; Negative for anxious HEENT normocephalic Face and Sinus: normal facial exam Eyes EOMs intact bilaterally and no scleral icterus General Eye: normal appearance of both eyes Neck full ROM and supple Lymph Lymphatic: no lymphadenopathy noted Chest Chest: abnormal inspection of the chest Resp normal respiratory effort Effort and Inspection: able to speak in complete sentences Cardio regular rate GI soft to palpation and non-tender Inspection: gravid Palpation: soft; Negative for tender external exam normal Amniotic Fluid: ROM+plus Back/Spine no CVA tenderness Extremity normal to inspection, full ROM and no clubbing, cyanosis or edema General Extremity: Negative for calf tenderness or edema Skin Lesions: no lesions Rashes: no rashes Psych mental status grossly normal Labs Labs Labs: Blood Type O POSITIVE Antibody Screen NEGATIVE Hct 36.0 % (37-47) L Hgb 11.6 g/dL (12.0-15.0) L Syphilis Total Ab Non-reactive Rubella IgG Antibody Reactive (Nonreactive) Hep Bs Antigen Non-Reactive (Nonreactive) Chlamydia DNA (CESAR) Negative (Negative) Neisseria gonorrhoeae DNA (CESAR) Negative (Negative) HIV 1&2 Antibody Non-Reactive (Nonreactive) Glucose 1 Hr 50 gm 124 mg/dL (70-140) Assessment & Plan (1) Polyhydramnios: COMMENT: 25 cm (2) pyelectasis: COMMENT: 13mm unilateral patient declined consultation (3) Ventricular septal defect (VSD) of fetus affecting management of : COMMENT: small VSD, fu after delivery, discussed with peds and cleared for [facility] delivery. testing weekly after 32 weeks (bpp's) monthly growth scans with MFM. (4) History of cholestasis during : COMMENT: baseline labs ordered (5) Obesity affecting : QUALIFIERS: Trimester: third trimester Obesity type affecting : unspecified obesity Qualified Code(s): O99.213 - Obesity complicating , third trimester COMMENT: encouraged healthy weight gain. (6) History of delivery affecting : COMMENT: twins, 2 vbacs after, plan (7) Hypertension affecting : QUALIFIERS: Trimester: third trimester Qualified Code(s): O16.3 - Unspecified maternal hypertension, third trimester COMMENT: P/C - nl on 07/23). chronic-Labetalol 100mg BID and h/o pre-e. start baby asa. plan growth US q 4weeks, twice weekly testing 32 weeks on(schedule once a week NST and BPP). delivery by 38 (8) Advanced maternal age (AMA), 40 years or greater: COMMENT: genetic counseling options declined, increased testing per [place] protocol (9) : QUALIFIERS: Weeks of gestation: 37 weeks Qualified Code(s): Z3A.37 - 37 weeks gestation of COMMENT: NIPT Declines. anatomy reviewed. gbs neg (10) Supervision of high risk , antepartum: COMMENT: PRR TAISHA 12/02/22 PC: Selvin Ashford Wade, Tess Spouse: Danielito (11) Abnormal glucose affecting : COMMENT: nl 3 hr GTT PLAN: Plan Patient presents IOL, plan management for with pitocin/AROM. Pain management: undecided GBS negative Management of any complications: start labetalol po now (home med) cotinuous monitoring and AROM after adequate contraction pattern is seen. I have reviewed the [facility] and made any clinically relevant updates.
[2022-11-20] MEDS: LACTATED RINGERS 500 ML 999 ML IV (16:25)
--- NOTE | 2022-11-20 17:57 | OP.PCM_ITS ---
Assessment & Plan (1) Polyhydramnios: COMMENT: 25 cm (2) pyelectasis: COMMENT: 13mm unilateral patient declined consultation (3) Ventricular septal defect (VSD) of fetus affecting management of : COMMENT: small VSD, fu after delivery, discussed with peds and cleared for [facility] delivery. testing weekly after 32 weeks (bpp's) monthly growth scans with MFM. (4) History of cholestasis during : COMMENT: baseline labs ordered (5) Obesity affecting : QUALIFIERS: Trimester: third trimester Obesity type affecting : unspecified obesity Qualified Code(s): O99.213 - Obesity complicating , third trimester COMMENT: encouraged healthy weight gain. (6) History of delivery affecting : COMMENT: twins, 2 vbacs after, plan (7) Hypertension affecting : QUALIFIERS: Trimester: third trimester Qualified Code(s): O16.3 - Unspecified maternal hypertension, third trimester COMMENT: P/C - nl on 07/23). chronic-Labetalol 100mg BID and h/o pre-e. start baby asa. plan growth US q 4weeks, twice weekly testing 32 weeks on(schedule once a week NST and BPP). delivery by 38 (8) Advanced maternal age (AMA), 40 years or greater: COMMENT: genetic counseling options declined, increased testing per [place] protocol (9) : QUALIFIERS: Weeks of gestation: 37 weeks Qualified Code(s): Z3A.37 - 37 weeks gestation of COMMENT: NIPT Declines. anatomy reviewed. gbs neg (10) Supervision of high risk , antepartum: COMMENT: PRR TAISHA 12/02/22 PC: Selvin Ashford Wade, Tess Spouse: Danielito (11) Abnormal glucose affecting : COMMENT: nl 3 hr GTT Maternal Data Information TAISHA Calculator Estimated Delivery Date Method Current WG Current Estimate 12/02/22 LMP (Certain) 38w 2d Other Estimates 12/02/22 Ultrasound #1 38w 2d Final TAISHA: 12/02/22 Gestational age: 38 weeks 2 days [place] Doctor Who Attended Delivery: Charlotte Adame Vaginal Delivery Maternal Presentation Maternal Presentation: Medically Indicated Induction Type of Induction: Pitocin and Amniotomy Operative Information Date of Procedure: 11/20/22 Pre-Operative Diagnosis: 42 y/o @ 38 weeks 2 days, prior section desires tolac, chronic htn, pyelectasis, VSD, advanced maternal age, polyhydramnios. Post-Operative Diagnosis: 42 y/o @ 38 weeks 2 days, prior section desires tolac, chronic htn, pyelectasis, VSD, advanced maternal age, polyhydramnios Type of Anesthesia: None Estimated Blood Loss: 300cc Findings Description of Procedure: Patient began pushing and delivered the head in the TIFFANIE presentation. The head was delivered atraumatically . The anterior and posterior shoulders delivered without complication followed by the rest of the infant and the was placed on the maternal abdomen. Delayed cord clamping was employed for approximately 60 seconds. Cord was clamped and cut and gentle traction was applied to the cord and the placenta delivered spontaneously immediately following it was noted to be intact with three-vessel cord. The perineum and vagina were inspected and noted to have a 1st degree perineal laceration. This was repaired with a 2-0 vicryl. EBL was 300cc. Patient and tolerated delivery well. Presentation: Vertex Amniotic Membrane Rupture Type: Spontaneous Amniotic Fluid Description: Clear Placenta Disposition: [facility] Cord Vessel Description: 3 Vessels Cord Entanglement: None Infant A Gender: Female (1 minute): 10 (5 minute): 10 Delayed Cord Clamping: Yes Post Vaginal Delivery Medications Given After Delivery: IV Pitocin Episiotomy Description: None Laceration: None Complication Complications: None Multi Select Codes Urinary/Genital Urinary/Genital CPT Codes: 67005 Vaginal Delivery global pkg and Other Procedure See Report ( delivery )
[2022-11-20] MEDS: Oxytocin 15 Units/NS 250ml 15 UNITS/250 ML IV.SOLN 83 UNITS IV (18:00)
--- NOTE | 2022-11-20 18:04 | DCINST_ITS ---
Discharge Instructions Diet Discharge Diet: No restrictions Activity Discharge Activity: Return to Normal Activity, May Not Drive (while taking narcotic pain medications.) and May Shower May resume sexual activity in: 4-6 weeks Dressing / Incision Call your doctor if your incision/area has: Continuous Slow Oozing, Sudden Increased Bleeding, Increased Pain/ Swelling, Increased Redness and Foul Smelling Discharge Follow Up Care Please Follow Up With: Millie Alcantar, When: Call [phone] to make an appointment with your doctor in 6 weeks. If you had elevated blood pressure or 4th degree laceration, you will need to be seen in 2 weeks. Test Results: Test results from this visit will be discussed in further detail at your follow- up appointment, if applicable. Discharge Plan Admission Admit Date/Time: 11/20/22 07:54 Primary Reason for Your Visit: delivery Attending Provider: Millie Alcantar Primary Care Provider: Cristhian Dennis Discharge Orders/Prescriptions Prescriptions: Continued Vitamin 27 mg iron- 800 mcg tablet 1 tab PO DAILY labetalol 100 mg tablet 100 mg PO BID 90 Days Qty: 180 3RF Discontinued aspirin [Adult Low Dose Aspirin] 81 mg tablet,delayed release (DR/EC) 81 mg PO DAILY No Action (DME) blood pressure monitor [Blood Pressure Kit] Kit See Rx Instructions .Route Qty: 1 0RF Rx Instructions: As directed Referrals / Follow Up: Cristhian Dennis PA-C [Primary Care Provider] - Disposition Disposition (needs filled in before D/C Order can be placed): Home, Self Care
[2022-11-20] MEDS: Lidocaine 1% (20 ml mdv) 20 ML Vial INFILT (18:39)
[2022-11-21 00:03] VITALS: BP 122/78; PULSE 72; RESP 16; TEMP 36.4; O2SAT 97
[2022-11-21 03:58] VITALS: BP 131/84; PULSE 68; RESP 16; TEMP 36.4; O2SAT 97
--- NOTE | 2022-11-21 07:23 | PCM.PN.OB ---
Subjective Subjective Patient doing well without complaints. Tolerating PO. Ambulating and voiding without difficulty. feeding well. Denies chest pain, shortness of breath, calf pain/swelling, fevers, chills, lightheadedness. Objective Data Objective Data Vital Signs: Vital Signs Temp Pulse Resp BP Pulse Ox O2 Del Method 97.6 F L 68 16 131/84 H 97 Room Air 11/21/22 03:58 11/21/22 03:58 11/21/22 03:58 11/21/22 03:58 11/21/22 03:58 11/21/22 03:58 Oxygen Delivery Method Room Air Weight: 249 lb 9.012 oz Body Mass Index (BMI) 40.2 Intake & Output: Intake and Output for Last 24 Hours 11/19/22 11/20/22 11/21/22 23:59 23:59 23:59 Intake Total 2975.48 / 2975.48 Output Total 1000 / 1000 Balance 1974.48 / 1974.48 Lab / Micro Data 11/20/22 09:40 Labs: Laboratory Results - last 24 hr 11/20/22 09:40: WBC 10.3, RBC 4.09 L, Hgb 11.6 L, Hct 36.0 L, MCV 88.0, MCH 28.4, MCHC 32.2, RDW Std Deviation 43.9, RDW Coeff of Bubba 13.7, Plt Count 280, MPV 11.4, Immature Gran % (Auto) 0.700, Neut % (Auto) 73.1 H, Lymph % (Auto) 17.9 L, [place] % (Auto) 7.7, Eos % (Auto) 0.4, Baso % (Auto) 0.2, Absolute Neuts (auto) 7.5, Absolute Lymphs (auto) 1.84, Nucleated RBC % 0, Syphilis Total Ab Non-reactive, Blood Type O POSITIVE, Antibody Screen NEGATIVE ROS Constitutional Constitutional: Reports systems reviewed and no addt'l complaints, except as documented Cardiovascular Cardiovascular: Reports systems reviewed and no addt'l complaints, except as documented Respiratory/Chest Respiratory/Chest: Reports systems reviewed and no addt'l complaints, except as documented Gastrointestinal Gastrointestinal: Reports systems reviewed and no addt'l complaints, except as documented Physical Exam Const alert, oriented x3 and no apparent distress HEENT Head and Scalp: atraumatic Resp normal respiratory effort GI soft to palpation and non-tender Bimanual Exam - Vag & Uterus: uterus non-tender Uterus Palpation: uterus fundus firm (below Umbilicus) Assessment & Plan (1) Vaginal after , delivered, current hospitalization: COMMENT: CONNOR (2) Hypertension: PLAN: Plan s/p PPD # 1 1. routine post delivery care 2. breast feeding- support given 3. rh positive 4. rubella immune
[2022-11-21 07:51] VITALS: BP 136/66; PULSE 86; RESP 18; TEMP 36.6; O2SAT 97
[2022-11-21] MEDS: Labetalol 100 MG Tablet PO ×2 (08:54→20:55)
[2022-11-21 12:45] VITALS: BP 129/85; PULSE 73; RESP 18; TEMP 36.2; O2SAT 98
--- NOTE | 2022-11-21 14:27 | NURSING ---
THis nursing unit coordinator was present and observed medication administration performed by Checo Kathleen student nurse. The student documentation was also reviewed.
[2022-11-21 17:13] VITALS: BP 126/86; PULSE 66; RESP 16; TEMP 36.9; O2SAT 97
[2022-11-21 19:52] VITALS: BP 147/80; PULSE 76; RESP 16; TEMP 36.3
[2022-11-22 01:18] VITALS: BP 139/89; PULSE 69; RESP 15; TEMP 36.1
[2022-11-22 07:40] VITALS: BP 122/86; PULSE 78; RESP 16; TEMP 36.2; O2SAT 98
[2022-11-22] MEDS: Labetalol 100 MG Tablet PO (09:20)
--- NOTE | 2022-11-22 09:25 | PCM.PN.OB ---
Subjective Subjective Patient doing well without complaints. Tolerating PO. Ambulating and voiding without difficulty. feeding well. Denies chest pain, shortness of breath, calf pain/swelling, fevers, chills, lightheadedness. Objective Data Objective Data Vital Signs: Vital Signs Temp Pulse Resp BP Pulse Ox O2 Del Method 97.2 F L 78 16 122/86 H 98 Room Air 11/22/22 07:40 11/22/22 07:40 11/22/22 07:40 11/22/22 07:40 11/22/22 07:40 11/22/22 07:40 Oxygen Delivery Method Room Air Weight: 249 lb 9.012 oz Body Mass Index (BMI) 40.2 Intake & Output: Intake and Output for Last 24 Hours 11/20/22 11/21/22 11/22/22 23:59 23:59 23:59 Intake Total 2975.48 / 2975.48 Output Total 1000 / 1000 Balance 1974.48 / 1974.48 Lab / Micro Data 11/20/22 09:40 ROS Constitutional Constitutional: Reports systems reviewed and no addt'l complaints, except as documented Cardiovascular Cardiovascular: Reports systems reviewed and no addt'l complaints, except as documented Respiratory/Chest Respiratory/Chest: Reports systems reviewed and no addt'l complaints, except as documented Gastrointestinal Gastrointestinal: Reports systems reviewed and no addt'l complaints, except as documented Physical Exam Const alert, oriented x3 and no apparent distress HEENT Head and Scalp: atraumatic Resp normal respiratory effort GI soft to palpation and non-tender Bimanual Exam - Vag & Uterus: uterus non-tender Uterus Palpation: uterus fundus firm (below Umbilicus) Assessment & Plan (1) Vaginal after , delivered, current hospitalization: COMMENT: [facility]NOR (2) Hypertension: PLAN: Plan s/p PPD # 2 1. routine post delivery care 2. breast feeding- support given 3. rh positive 4. rubella immune
[2022-11-22 10:00] VITALS: BP 122/86; PULSE 70; RESP 16; O2SAT 98
== END 2022-11-22 11:05 | disposition home or self-care (01) | DRG 807 ==
PROVIDERS: Admitting Provider Obstetrics & Gynecology; PCP Physician Assistant; Referring Provider Obstetrics & Gynecology; Visit Provider Obstetrics & Gynecology
DX: O10.02 Pre-existing essential hypertension complicating childbirth (principal); Z37.0 Single live birth; O40.3XX0 Polyhydramnios, third trimester, not applicable or unspecified; O34.219 Maternal care for unspecified type scar from previous cesarean delivery; O99.214 Obesity complicating childbirth; O70.0 First degree perineal laceration during delivery; Z3A.38 38 weeks gestation of pregnancy; O35.8XX0 Maternal care for other (suspected) fetal abnormality and damage, not applicable or unspecified; O35.BXX0 Maternal care for other (suspected) fetal abnormality and damage, fetal cardiac anomalies, not applicable or unspecified; Z79.82 Long term (current) use of aspirin; Z79.899 Other long term (current) drug therapy
CPT/HCPCS: 59025; 59050; 85025; 86780; 86850; 86900; 86901; 99221; J7120; G0378

== ENCOUNTER 2023-07-30 10:19 | Outpatient (RCR) | payer OTHER, SELFPAY | END 2023-08-24 23:59 | LOC: NS 10:19 | PROVIDERS: PCP Physician Assistant; Referring Provider Obstetrics & Gynecology; Visit Provider Obstetrics & Gynecology | DX: Z71.3 Dietary counseling and surveillance (principal); E66.9 Obesity, unspecified; Z68.37 Body mass index [BMI] 37.0-37.9, adult | CPT/HCPCS: 97802 ==

== ENCOUNTER 2023-09-02 10:32 | Outpatient (RCR) | payer OTHER, SELFPAY | END 2023-09-24 23:59 | LOC: NS 10:32 | PROVIDERS: PCP Physician Assistant; Referring Provider Obstetrics & Gynecology; Visit Provider Obstetrics & Gynecology | DX: Z71.3 Dietary counseling and surveillance (principal); E66.9 Obesity, unspecified; Z68.37 Body mass index [BMI] 37.0-37.9, adult | CPT/HCPCS: 97803 ==

== ENCOUNTER 2023-10-14 10:17 | Outpatient (RCR) | payer OTHER, SELFPAY | END 2023-10-25 23:59 | LOC: NS 10:17 | PROVIDERS: PCP Physician Assistant; Referring Provider Obstetrics & Gynecology; Visit Provider Obstetrics & Gynecology | DX: Z71.3 Dietary counseling and surveillance (principal); E66.9 Obesity, unspecified; Z68.37 Body mass index [BMI] 37.0-37.9, adult | CPT/HCPCS: 97803 ==

== ENCOUNTER 2023-12-10 09:54 | Outpatient (RCR) | payer OTHER, SELFPAY | END 2023-12-25 23:59 | LOC: NS 09:54 | PROVIDERS: PCP Physician Assistant; Referring Provider Obstetrics & Gynecology; Visit Provider Obstetrics & Gynecology | DX: Z71.3 Dietary counseling and surveillance (principal); E66.9 Obesity, unspecified; Z68.37 Body mass index [BMI] 37.0-37.9, adult | CPT/HCPCS: 97803 ==

== ENCOUNTER 2024-01-27 08:47 | Outpatient (RCR) | payer OTHER, SELFPAY | END 2024-02-24 23:59 | LOC: NS 08:47 | PROVIDERS: PCP Physician Assistant; Referring Provider Obstetrics & Gynecology; Visit Provider Obstetrics & Gynecology | DX: Z71.3 Dietary counseling and surveillance (principal); E66.9 Obesity, unspecified; Z68.37 Body mass index [BMI] 37.0-37.9, adult | CPT/HCPCS: 97803 ==